=== PATIENT | female | born 1945 | race Asian ===

== ENCOUNTER → 2017-10-04 | Outpatient (CLI) | payer MEDICARE ==
--- NOTE | 2017-10-04 15:18 | Diagnostic Imaging Report ---
Indication:Abdominal pain Technique: Grayscale and duplex Doppler imaging of the abdomen performed. Comparison: None Findings: Liver is echogenic consistent with fatty infiltration. CBD is 5.2 mm. The demonstrated part of the pancreas, gallbladder, IVC, both kidneys, spleen appear unremarkable. Mild mural calcium noted within the aorta. No evidence of aneurysm. There is no biliary ductal dilatation identified. Doppler evaluation of the main portal vein shows patency. There is no ascites. No hydronephrosis seen. Impression: Fatty liver
== END | disposition home or self-care (01) ==
LOC: ULS 11:06
DX: R79.89 Other specified abnormal findings of blood chemistry (principal); K76.0 Fatty (change of) liver, not elsewhere classified
CPT/HCPCS: 76700